=== PATIENT | female | born 1970 ===

== ENCOUNTER → 2022-09-12 | Outpatient (CLI) | payer OTHER ==
--- NOTE | 2022-09-12 12:34 | CT ---
EXAMINATION TYPE: CT angio chest DATE OF EXAM: 09/12/2022 12:16 PM COMPARISON: None HISTORY: pe, shortness of breath CT DLP: 502 mGycm Automated exposure control for dose reduction was used. CONTRAST: CTA scan of the thorax is performed with IV Contrast, patient injected with 100 mL of Isovue 370, pul monary embolism protocol. . FINDINGS: LUNGS: The lungs are grossly clear, there is no concerning parenchymal mass or nodule identified. T here is no pleural effusion or pneumothorax seen. The tracheobronchial tree is patent. Biapical pleu ral thickening. MEDIASTINUM: There is satisfactory enhancement of the pulmonary artery and its branches, there is no CT evidence for pulmonary embolism. There are no greater than 1 cm hilar or mediastinal lymph nodes. No pericardial effusion is seen. OTHER: Mild hypertrophic and degenerative changes spine. Date 2 mm nonobstructing left renal calculu s. Postcholecystectomy changes noted. Small hiatal hernia. IMPRESSION: 1. NO DIAGNOSTIC EVIDENCE OF PULMONARY EMBOLISM. 2. PUNCTATE 2 MM LEFT RENAL CALCULUS NONOBSTRUCTING.
[2022-09-12 18:34] LABS: Basophils # (A) 0.07 X 10*3/uL (0.00-0.10); Basophils % (A) 1.1 %; Eosinophils # (A) 0.17 X 10*3/uL (0.04-0.35); Eosinophils % (A) 2.7 %; HCT 40.8 % (37.2-46.3); HGB 13.8 g/dL (12.0-15.0); Immature Grans, Automated 0.3 %; Lymphocytes # (A) 2.39 X 10*3/uL (0.90-5.00); Lymphocytes % (A) 37.5 %; MCH 30.4 pg (27.0-32.0); MCHC 33.8 g/dL (32.0-37.0); MCV 89.9 fL (80.0-97.0); Mean Platelet Volume 10.4 fL (9.5-12.2); Monocytes # (A) 0.36 X 10*3/uL (0.20-1.00); Monocytes % (A) 5.7 %; NRBC Per 100 WBC 0 /100 WBCS (0.0-0.0); Neutrophils # (A) 3.36 X 10*3/uL (1.80-7.70); Neutrophils % (A) 52.7 %; Platelet Count 256 X 10*3/uL (140-440); RBC 4.54 X 10*6/uL (4.10-5.20); RDW 12.7 % (11.5-14.5); WBC 6.37 X 10*3/uL (4.50-10.00)
[2022-09-12 18:47] LABS: African American GFR (CKD) 94.6 (60.0-200.0); Albumin 4.9 g/dL (3.8-4.9); Albumin/Globulin Ratio 1.74 (1.60-3.17); Anion Gap 12.5 mmol/L (10.00-18.00); BUN/Creat Ratio 13.01 Ratio (12.00-20.00); Blood Urea Nitrogen 10.8 mg/dL (9.0-27.0); Calcium 9.9 mg/dL (8.7-10.3); Carbon Dioxide 24.6 mmol/L (20.0-27.5); Globulin 2.8 g/dL (1.6-3.3); Magnesium 1.9 mg/dL (1.5-2.4); Non-African American GFR(CKD) 81.7 (60.0-200.0); T4, Free (Free Thyroxine) 1.51 ng/dL (0.800-1.800); Total Bilirubin 0.3 mg/dL (0.30-1.20); Total Protein 7.6 g/dL (6.2-8.2)
== END | disposition home or self-care (01) ==
LOC: RADCTMAIN 11:28
PROVIDERS: ATTEND Internal Medicine
DX: N20.0 Calculus of kidney (principal); E03.9 Hypothyroidism, unspecified; R06.02 Shortness of breath
CPT/HCPCS: 84439; 80053; 83735; 84443; 84484; 85025; 71275; 36415; Q9967

== ENCOUNTER → 2023-10-03 | Outpatient (CLI) | payer OTHER ==
--- NOTE | 2023-10-03 08:04 | MM ---
Reason for Exam: Clinical finding. Last screening mammogram was performed 12 month(s) ago. Indicated Problems: Palpable abnormality of the right side for 1 Year(s). Patient History: Menarche at age 15. First Full-Term at age 18. Left ovary removed at age 44. Postmenopausal. Patient has history of breast feeding. Maternal grandmother had breast cancer at or over age 50. Risk Values: Lo 5 year model risk: 0.7%. NCI Lifetime model risk: 5.8%. Prior Study Comparison: 06/08/2020 Bilateral MG screening mammo w CAD - 2, [facility]. 09/28/2021 Bilateral MG 3D screening mammo w/cad, [facility]. 10/01/2022 Bilateral MG 3D screening mammo w/cad, [facility]. Tissue Density: There are scattered fibroglandular densities. Findings: Analyzed By CAD. No significant change from prior exams. Palpable marker placed high along the right axilla. No discrete underlying abnormality is seen. Overall Assessment: Incomplete: need additional imaging evaluation, BI-RAD 0 Management: Diagnostic Breast Ultrasound of the right breast. Electronically signed and approved by: Riley Weinberg M.D. Radiologist
--- NOTE | 2023-10-03 08:30 | USB ---
Reason for Exam: Clinical finding. Patient History: Menarche at age 15. First Full-Term at age 18. Left ovary removed at age 44. Postmenopausal. Patient has history of breast feeding. Maternal grandmother had breast cancer at or over age 50. Risk Values: Lo 5 year model risk: 0.7%. NCI Lifetime model risk: 5.8%. Technique: Method: Targeted. Prior Study Comparison: 06/08/2020 Bilateral MG screening mammo w CAD - 2, [facility]. 09/28/2021 Bilateral MG 3D screening mammo w/cad, [facility]. 10/01/2022 Bilateral MG 3D screening mammo w/cad, [facility]. Findings: The upper inner quadrant of the right breast, the axilla of the right breast and the retroareolar of the right breast were scanned. Targeted ultrasound upper quadrant 12:00 to 3:00 with particular attention at the patient's superior palpable site which corresponds to the 2:00 position, 12 cm from the nipple. There is an oval, circumscribed, echogenic lesion just deep to the skin surface measuring 1.9 x 1.6 x 0.7 cm. Findings typical of a benign lipoma. No other solid or cystic lesion or axillary lymphadenopathy. Overall Assessment: Benign, BI-RAD 2 Management: Screening Mammogram of both breasts in 1 year. However, as the patient indicates that the lipoma is enlarging, surgical evaluation for excision can be considered. A clinical breast exam by your physician is recommended on an annual basis and results should be correlated with mammographic findings. This exam should not preclude additional follow-up of suspicious palpable abnormalities. Results were given to the patient verbally at the time of exam. Electronically signed and approved by: Riley Weinberg M.D. Radiologist
== END | disposition home or self-care (01) ==
LOC: RADMAMWWP 07:23
PROVIDERS: ATTEND Obstetrics & Gynecology
DX: R92.323 Mammographic fibroglandular density, bilateral breasts (principal); N63.10 Unspecified lump in the right breast, unspecified quadrant; Z80.3 Family history of malignant neoplasm of breast; Z78.0 Asymptomatic menopausal state
CPT/HCPCS: 77062; 77066

== ENCOUNTER → 2024-07-15 | Outpatient (CLI) | payer OTHER ==
--- NOTE | 2024-07-15 18:16 | US ---
EXAMINATION TYPE: US abdomen limited DATE OF EXAM: 07/15/2024 COMPARISON: NONE CLINICAL INDICATION: Female, 54 years old with history of abdominal wall; R10.31 RIGHT LOWER QUADRANT PAIN; RLQ pain when bending over TECHNIQUE: Grayscale with or without color Doppler imaging of the area of hernia concern. Real-time scanning was performed by the rolling up machine operator utilizing Valsalva and additional dynamic maneuve rs to assess for hernia. FINDINGS: Assess for hernia at location of: right spigelian area no discrete hernia or abnormality appreciated . No lymphadenopathy or organizing fluid collection. IMPRESSION: No evidence for hernia. [facility], , 07/15/2024 6:13 PM
== END | disposition home or self-care (01) ==
LOC: RADUSWWP 14:56
PROVIDERS: ATTEND Family Medicine
DX: K46.9 Unspecified abdominal hernia without obstruction or gangrene (principal)
CPT/HCPCS: 76705

== ENCOUNTER → 2024-10-15 | Outpatient (CLI) | payer OTHER ==
--- NOTE | 2024-10-15 08:44 | MM ---
Reason for Exam: Screening (asymptomatic). Last mammogram was performed 1 year(s) and 1 month(s) ago. Patient History: Menarche at age 15. First Full-Term at age 18. Left ovary removed at age 44. Postmenopausal. Patient has history of breast feeding. Maternal grandmother had breast cancer at or over age 50. Risk Values: Lo 5 year model risk: 0.7%. NCI Lifetime model risk: 5.7%. Prior Study Comparison: 09/28/2021 Bilateral MG 3D screening mammo w/cad, [facility]. 10/01/2022 Bilateral MG 3D screening mammo w/cad, [facility]. 10/03/2023 Bilateral MG 3D diag mammo w/cad [facility]. Tissue Density: There are scattered areas of fibroglandular density. Findings: Analyzed By CAD. There is no suspicious group of microcalcifications or new suspicious mass in either breast. Overall Assessment: Negative, BI-RAD 1 Management: Screening Mammogram of both breasts in 1 year. Patient should continue monthly self-breast exams. A clinical breast exam by your physician is recommended on an annual basis. This exam should not preclude additional follow-up of suspicious palpable abnormalities. Note on Lo scores and lifetime risk: 1. A Lo score greater than 3% is considered moderate risk. If this is the case, consider specialist referral to assess eligibility for a risk reducing agent. 2. If overall lifetime risk for the development of breast cancer is 20% or higher, the patient may qualify for future screening with alternating mammogram and breast MRI. [facility], , 10/15/2024 8:41 AM. Electronically signed and approved by: Riley Weinberg M.D. Radiologist
== END | disposition home or self-care (01) ==
LOC: RADMAMWWP 07:59
PROVIDERS: ATTEND Obstetrics & Gynecology
DX: Z12.31 Encounter for screening mammogram for malignant neoplasm of breast (principal); R92.323 Mammographic fibroglandular density, bilateral breasts; Z78.0 Asymptomatic menopausal state; Z80.3 Family history of malignant neoplasm of breast
CPT/HCPCS: 77063; 77067

== ENCOUNTER → 2024-11-16 | Outpatient (CLI) | payer OTHER ==
--- NOTE | 2024-11-17 08:07 | XR ---
EXAMINATION TYPE: XR cervical spine comp DATE OF EXAM: 11/16/2024 4:59 PM COMPARISON: None. CLINICAL INDICATION: Female, 54 years old with history of M54.6, M54.2, pain TECHNIQUE: 5 view(s) obtained. FINDINGS: Prevertebral space is normal. Disc heights are preserved. Vertebral body heights are preserved. Poste rior spinal lamellar line is intact. Some facet hypertrophy is present. Neural foramen are patent. Od ontoid is obscured by overlying maxilla. IMPRESSION: 1. No acute osseous abnormality visualized cervical spine [facility], , 11/17/2024 8:05 AM
--- NOTE | 2024-11-17 08:08 | XR ---
EXAMINATION TYPE: XR thoracic spine complete DATE OF EXAM: 11/16/2024 4:59 PM COMPARISON: None. CLINICAL INDICATION: Female, 54 years old with history of M54.6, M54.2, pain TECHNIQUE: 3 view(s) obtained. FINDINGS: There are 12 thoracic type vertebral bodies. Pedicles are intact. Disc heights are preserved. Vertebr al body heights are preserved. Alignment is normal IMPRESSION: 1. No acute osseous abnormality thoracic spine [facility], , 11/17/2024 8:06 AM
== END | disposition home or self-care (01) ==
LOC: RADXRMAIN 16:33
PROVIDERS: ATTEND Chiropractor
DX: M54.6 Pain in thoracic spine (principal); M54.2 Cervicalgia
CPT/HCPCS: 72050; 72072